=== PATIENT | female | born 2000 ===

== ENCOUNTER → 2024-06-12 | Outpatient (CLI) | payer BC | LOC: LAB SHORT 11:19 | DX: Z34.93 Encounter for supervision of normal pregnancy, unspecified, third trimester (principal) | CPT/HCPCS: 87081; 87150 ==

== ENCOUNTER 2024-07-13 02:43 | Inpatient (IN) | payer BC, OTHER ==
[~2024-07-13] VITALS: Ht 162.6 cm; Wt 59.0 kg
[2024-07-13] VITALS (38 sets, daily range): BP systolic 94–141; BP diastolic 50–96
[2024-07-13] MEDS ORDERED: OXYTOCIN/RINGER'S LACTATE 500 ML IV PRN (04:45)
[2024-07-13] MEDS ORDERED: Acetaminophen 500 MG Tab PO PRN (04:45)
[2024-07-13] MEDS ORDERED: Methylergonovine Maleate 0.2MG / ML 1ML Amp IM PRN (04:45)
[2024-07-13] MEDS ORDERED: ePHEDrine Sulfate 50 MG/ML 1ML Injection XX PRN (04:45)
[2024-07-13] MEDS ORDERED: Ondansetron HCl 2 MG / ML 2ML Vial IV PRN ×3 (04:45→09:05)
[2024-07-13] MEDS ORDERED: Misoprostol 200 MCG Tab PR PRN (04:45)
[2024-07-13] MEDS ORDERED: Calcium Carbonate 500 MG Tab Chew PO PRN (04:45)
[2024-07-13] MEDS ORDERED: Tranexamic Acid 100 ML IV SCH (04:45)
[2024-07-13] MEDS ORDERED: Misoprostol 200 MCG Tab BC PRN (04:45)
[2024-07-13] MEDS ORDERED: Lactated Ringer's 1,000 ML IV PRN (04:45)
[2024-07-13] MEDS ORDERED: Oxytocin 10 Unit / ML Vial IM PRN (04:45)
[2024-07-13] MEDS ORDERED: FentaNYL Citrate 50 MCG/ML 2 ML Injection IV PRN (04:45)
[2024-07-13] MEDS ORDERED: FentaNYL 2mcg/ml-Bup 0.1% Epd 250 ML EPI PRN (04:45)
[2024-07-13] MEDS ORDERED: Lactated Ringer's 1,000 ML IV SCH ×3 (04:45→16:30)
[2024-07-13] MEDS ORDERED: Carboprost Tromethamine 250 MCG/ML 1ML Amp IM PRN (04:45)
[2024-07-13 05:22] LABS: BASOPHILS ABSOLUTE AUTO 0.03 K/mm3 (0.00-0.23); BASOPHILS PERCENT AUTO 0 % (0-2); EOSINOPHILS ABSOLUTE AUTO 0.01 K/mm3 (0.00-0.68); EOSINOPHILS PERCENT AUTO 0 % (0-6); Hematocrit 33.8 % (33.0-51.0); Hemoglobin 11.5 g/dL (11.5-16.0); IMMATURE GRAN ABSOLUTE AUTO 0.03 K/mm3 (0.00-0.10); IMMATURE GRAN PERCENT AUTO 0 % (0-1); LYMPHOCYTES ABSOLUTE AUTO 1.23 K/mm3 (0.84-5.20); LYMPHOCYTES PERCENT AUTO 12 % (21-46); MONOCYTES ABSOLUTE AUTO 0.59 K/mm3 (0.16-1.47); MONOCYTES PERCENT AUTO 6 % (4-13); Mean Corpuscular HGB 29.4 pg (26.0-34.0); Mean Corpuscular Volume 86 fL (80-100); Mean Platelet Volume 11.8 fL (9.1-12.4); NEUTROPHILS ABSOLUTE AUTO 8.08 K/mm3 (1.96-9.15); NEUTROPHILS PERCENT AUTO 81 % (41-73); Platelet Count 164 K/mm3 (150-400); RDW Coefficient Variation 13.2 % (11.7-14.2); RDW Standard Deviation 41.4 fL (35.1-46.3); Red Blood Cell Count 3.91 M/mm3 (3.80-5.20); White Blood Cell Count 9.97 K/mm3 (4.00-11.30)
[2024-07-13] MEDS ORDERED: PRENATAL TABLE1 EAC2 PO (05:23)
[2024-07-13] MEDS ORDERED: Lactated Ringer's 1,000 ML IV ONE (05:30)
[2024-07-13] MEDS ORDERED: DiphenhydrAMINE HCl 50 MG/ML 1ML Vial IV PRN (09:05)
[2024-07-13] MEDS ORDERED: Naloxone HCl 0.4MG / ML 1ML Vial IV PRN (09:05)
[2024-07-13] MEDS ORDERED: Metoclopramide HCl 5MG / ML 2ML Vial IV PRN (09:10)
[2024-07-13] MEDS ORDERED: NS 1,000 ML IV ONE (09:46)
[2024-07-13] MEDS ORDERED: NS 1,000 ML BAG IR SCH (10:10)
[2024-07-13] MEDS ORDERED: Pantoprazole Sodium 40 MG Injection IV ONE (10:45)
[2024-07-13] MEDS ORDERED: OxyCODONE 5 mg/Acetamin 325 mg TABLET PO PRN (16:25)
[2024-07-13] MEDS ORDERED: Benzocaine Topical Anesthetic Spray 60GM TOP PRN (16:25)
[2024-07-13] MEDS ORDERED: Docusate Sodium 100 MG Cap PO PRN (16:25)
[2024-07-13] MEDS ORDERED: Ketorolac Tromethamine 30mg Vial IV PRN (16:25)
[2024-07-13] MEDS ORDERED: FLU VACC TS2024-25(6MOS UP)/PF 45 MCG/0.5 ML SYRINGE IM SCH (16:30)
[2024-07-13] MEDS ORDERED: Acetaminophen 325 MG TABLET PO PRN (16:30)
[2024-07-13] MEDS ORDERED: Hydrocortisone/Pramoxine Rectal Foam 10 GM PR PRN (16:30)
[2024-07-13] MEDS ORDERED: Lanolin Cream TOP PRN (16:30)
[2024-07-13] MEDS ORDERED: Witch Hazel/Glycerin PADS TOP PRN (16:30)
[2024-07-13] MEDS ORDERED: Naproxen 500 MG Tab PO PRN (16:30)
[2024-07-13] MEDS ORDERED: HYDROCORTISONE TOP PRN (23:25)
[2024-07-13] MEDS ORDERED: PRAMOXINE TOP PRN (23:25)
[2024-07-14 04:44] VITALS: BP 115/70
[2024-07-14 05:56] LABS: Hematocrit 30.6 % (33.0-51.0); Hemoglobin 10.6 g/dL (11.5-16.0); Mean Corpuscular HGB 30.2 pg (26.0-34.0); Mean Corpuscular HGB Conc 34.6 g/dL (31.5-36.5); Mean Corpuscular Volume 87 fL (80-100); Mean Platelet Volume 12.4 fL (9.1-12.4); Platelet Count 132 K/mm3 (150-400); RDW Coefficient Variation 13.3 % (11.7-14.2); RDW Standard Deviation 42.1 fL (35.1-46.3); Red Blood Cell Count 3.51 M/mm3 (3.80-5.20); White Blood Cell Count 12.67 K/mm3 (4.00-11.30)
[2024-07-14 07:43] VITALS: BP 105/66
[2024-07-14] MEDS ORDERED: Prenatal Vit/FE Fumarate/FA 1 Tab PO SCH (09:00)
[2024-07-14 11:32] VITALS: BP 115/67
[2024-07-14] MEDS ORDERED: IBUP800 PO (15:20)
[2024-07-14 17:30] VITALS: BP 118/72
== END 2024-07-14 17:55 | disposition home or self-care (01) | DRG 806 ==
LOC: OBS 02:43 → BC 02:47 → OBS 04:36 → BC 04:37
PROVIDERS: ADMIT Family Medicine
PROC: 10E0XZZ Delivery of Products of Conception, External Approach (ICD-10-PCS; principal; 2024-07-13)
PROC: 10H07YZ Insertion of Other Device into Products of Conception, Via Natural or Artificial Opening (ICD-10-PCS; 2024-07-13)
PROC: 0KQM0ZZ Repair Perineum Muscle, Open Approach (ICD-10-PCS; 2024-07-13)
PROC: 3E0E77Z Introduction of Electrolytic and Water Balance Substance into Products of Conception, Via Natural or Artificial Opening (ICD-10-PCS; 2024-07-13)
DX: O48.0 Post-term pregnancy (principal); O99.893 Other specified diseases and conditions complicating puerperium; O47.1 False labor at or after 37 completed weeks of gestation; O99.52 Diseases of the respiratory system complicating childbirth; R51.9 Headache, unspecified; O70.1 Second degree perineal laceration during delivery; O99.62 Diseases of the digestive system complicating childbirth; K21.9 Gastro-esophageal reflux disease without esophagitis; J30.2 Other seasonal allergic rhinitis; Z37.0 Single live birth; Z3A.40 40 weeks gestation of pregnancy
CPT/HCPCS: 36415; 51702; 59025; 62273; 81003; 85025; 85027; 86850; 86900; 86901; 86923; 99213; 99214; A9270; J1885; J2405; J2470; J7030; J7120